=== PATIENT | male | born 1980 | race Two or more races ===

== ENCOUNTER 2019-03-22 21:26 | Emergency (ER) | payer SELFPAY ==
[~2019-03-22] VITALS: Ht 182.9 cm; Wt 105.1 kg
[2019-03-22] MEDS ORDERED: SODIUM CHLORIDE FLUSH 10ML SYR IVF ONE (22:00)
[2019-03-22 22:29] LABS: BASOPHILS # (AUTO) 0.01 x10^3/uL (0-0.1); BASOPHILS % (AUTO) 0 % (0-1); EOSINOPHILS # (AUTO) 0.01 x10^3/uL (0-0.4); EOSINOPHILS % (AUTO) 0 % (1-7); LYMPHOCYTES # (AUTO) 1.33 x10^3/uL (1-3.4); LYMPHOCYTES % (AUTO) 12 % (22-44); MD NO; MEAN CORPUSCULAR HGB CONC 33.9 g/dL (33.2-36.2); MEAN CORPUSCULAR VOLUME 88.4 fL (81-97); MEAN PLATELET VOLUME 8.6 fL (7.4-10.4); MONOCYTES # (AUTO) 0.62 x10^3/uL (0.2-0.8); MONOCYTES % (AUTO) 5 % (2-9); NEUTROPHILS # (AUTO) 9.46 x10^3/uL (1.8-6.8); NEUTROPHILS % (AUTO) 83 % (42-75); PLATELET COUNT 226 x10^3/uL (130-400); RED BLOOD COUNT 5.55 x10^6/uL (4.38-5.82); RED CELL DISTRIBUTION WIDTH 14.3 % (9.4-14.8)
--- NOTE | 2019-03-22 22:40 | NUR ---
PT HERE WITH COMPLAINTS UPPER ABD PAIN FOR TWO DAYS, STATE GETTING WORSE, HAVING NAUSEA, MONITORS APPLIED, SIDERAILS UP X2, CALL LIGHT WITHIN REACH
[2019-03-22 22:41] LABS: ALBUMIN 4.2 g/dL (3.4-5.0); ANION GAP 6 mmol/L (5-15); CALCIUM 9.5 mg/dL (8.5-10.1); CHLORIDE 107 mmol/L (98-107)
[2019-03-22 22:44] LABS: ALANINE AMINOTRANSFERASE 29 U/L (12-78); ALKALINE PHOSPHATASE 75 U/L (45-117); CREATININE 1.02 mg/dL (0.7-1.3); TOTAL PROTEIN 7.6 g/dL (6.4-8.2)
[2019-03-22] MEDS ORDERED: MAALOX/HYOSCYAMINE/LIDOCAINE 45 ML BTL ONE (22:55)
[2019-03-22] MEDS ORDERED: FAMOTIDINE 20 MG TABLET ONE (22:56)
[2019-03-22] MEDS ORDERED: ONDANSETRON ODT 4 MG ONE (22:56)
--- NOTE | 2019-03-22 22:59 | NUR ---
PT MEDICATED PER MAR
[2019-03-22] MEDS ORDERED: FAMOTIDINE 20 MG TABLET PO ONE (23:00)
[2019-03-22] MEDS ORDERED: MAALOX/HYOSCYAMINE/LIDOCAINE 45 ML BTL PO ONE (23:00)
[2019-03-22] MEDS ORDERED: ONDANSETRON ODT 4 MG PO ONE (23:00)
--- NOTE | 2019-03-22 23:12 | NUR ---
PROVIDED PT WITH PO FLUIDS, PT TOLERATING WITHOUT DIFFICULTY
[2019-03-22 23:29] VITALS: BP 112/63
[2019-03-22] MEDS ORDERED: HYDROcodone/APAP 5/325 TABLET PO ONE (23:30)
[2019-03-22] MEDS ORDERED: HYDROcodone/APAP 5/325 TABLET ONE (23:32)
== END 2019-03-22 23:54 | disposition home or self-care (01) ==
LOC: ED 23:47
DX: K29.00 Acute gastritis without bleeding (principal); K21.9 Gastro-esophageal reflux disease without esophagitis
CPT/HCPCS: 36415; 76700; 80053; 83690; 85025; 93005; 99284; Q0162